=== PATIENT | male | born 1985 | race African-American/Black ===

== ENCOUNTER 2023-03-25 14:59 | Inpatient (IN) ==
[2023-03-25] MEDS ORDERED: SODIUM CHLORIDE 0.9% 1,000 ML IV ONE (15:17)
[2023-03-25] MEDS ORDERED: FAMOTIDINE 20MG IV PUSH 20 MG/5 ML SYR IV STA (15:17)
[2023-03-25 15:38] LABS: Mean Corpuscular Hemoglobin 25.8 pg (25.0-34.0); Mean Corpuscular Hgb Conc 32.5 g/dL (32.0-36.0); Mean Corpuscular Volume 79.4 fL (80.0-100.0); Platelet Count 116 K/uL (130-400); RDW Coefficient of Variation 14.5 % (11.5-14.5); RDW Standard Deviation 41.5 fL (36.4-46.3); Red Blood Count 5.62 M/uL (4.70-6.10)
[2023-03-25 15:39] LABS: Hematocrit (blood only) 44.6 % (42.0-52.0); Hemoglobin 14.5 g/dl (14.0-18.0)
[2023-03-25 15:47] LABS: Albumin Level 4.6 gm/dl (3.4-5.0); BUN Creatinine Ratio 9.5 (10-20); Bilirubin,Total 0.5 mg/dl (0.2-1.0); Calcium 9.3 mg/dl (8.6-10.3); Creatinine Clr Calc Pharmacy 66.8 ml/min; Est GFR (Non-African American) 41.4 ml/min; Globulin 4.6 gm/dl (2.5-4.0); Potassium 3.4 mmol/L (3.5-5.1); Total Protein 9.2 gm/dl (6.0-8.3)
[2023-03-25 15:53] LABS: Troponin I High Sensitivity 40.6 pg/ml (0-20)
[2023-03-25 15:55] LABS: White Blood Count 6.18 K/ul (4.8-10.8)
[2023-03-25 15:56] LABS: Basophils # (auto) 0.02 K/uL (0.00-0.20); Basophils % (auto) 0.3 %; Eosinophils # (auto) 0.18 K/uL (0.00-0.50); Eosinophils % (auto) 2.9 %; Immature Granulocytes # (auto) 0.01 K/uL (0.01-0.20); Immature Granulocytes % (auto) 0.2 %; Lymphocytes # (auto) 1.44 K/uL (1.20-3.40); Lymphocytes % (auto) 23.3 %; Monocytes # (auto) 0.39 K/uL (0.11-0.59); Monocytes % (auto) 6.3 %; Neutrophils # (auto) 4.14 K/uL (1.40-6.50); RBC Morphology Unremarkable
--- NOTE | 2023-03-25 16:46 | XRay Report ---
XR chest 1V portable HISTORY: 37 years-old Male n/v acute chest pain with nausea and vomiting COMPARISON: None TECHNIQUE: AP view of the chest FINDINGS: Cardiac silhouette is upper limits of normal in size. Subsegmental bibasilar densities. No pneumothor ax, pleural effusion or overt pulmonary edema. Bones appear grossly intact. IMPRESSION: Subsegmental bibasilar opacities likely represent atelectasis. ACT 112: Negative or not required by law. The above report was generated using voice recognition software. It may contain grammatical, syntax o r spelling errors. Electronically signed by: Adam Washington M.D. 03/25/2023 4:45 PM
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
[2023-03-25] MEDS ORDERED: LABETALOL HCL IV 5 MG/ML 20ML IV STA ×2 (17:03→19:01)
[2023-03-25] MEDS: POTASSIUM CHLORIDE / WTR 10 MEQ/100 ML PLCT IV SCH ×2 (17:26→18:59)
[2023-03-25 17:30] LABS: Appearance Urine Clear (Clear); Bacteria Urine Automated Negative (Negative); Bilirubin Urine Negative (Negative); Blood Urine Trace (Negative); Color Urine Yellow; Epithelial Cell Urine Auto 0-5 /lpf (0-5); Glucose Urine UA Negative (Negative); Ketones Urine Negative (Negative); Leukocyte Esterase Urine Negative (Negative); Nitrite Urine Negative (Negative); RBC Urine Automated 0-4 /hpf (0-4); Specific Gravity Urine 1.009 (1.000-1.030); Urobilinogen Urine Negative (Negative); WBC Urine Automated 0 /hpf (0-5)
[2023-03-25 17:38] LABS: Magnesium 1.8 mg/dl (1.7-2.4); Phosphorus 1.4 mg/dl (2.5-4.9)
[2023-03-25 17:43] LABS: Protein Urine 2+ (Negative)
[2023-03-25] MEDS ORDERED: POTASSIUM PHOS 3 MMOL/1 ML INFUSION IV STA (17:56)
--- NOTE | 2023-03-25 18:09 | History & Physical Report ---
Date of Service March 25, 2023 Assessment & Plan (1) COVID: Plan: No hypoxia, steroids and remdesivir not indicated Suspect nausea/poor intake due to this. Electrolytes repleted. Fluids given Patient received 1 L of rehydration while in the ER in addition to phosphate repletion Heparin w/ LANCE. If normalizes --> lovenox Titrate oxygen to 90%, greater than 94% on room air at time of admit (2) Hypertension: Plan: CTA of the chest with no acute findings, no dissection No neurologic symptoms, headache, or confusion; asymptomatic at time of admit assessment Labetalol 10, and additional labetalol 5 given with improvement but not normalization. Amlodipine given, + addition to 2.5 of hydralazine - labetelol revenue cycle consultant, hydralazine second line revenue cycle consultant. Would treat as inpatient due to concurrent LANCE with proteinuria, patient does have COVID with poor p.o. intake; also may have hypertensive nephropathy. Signed out to overnight provider, if no improvement with labetelol + hydralazine will give addition PRN vs --> nicardipine gtt if severe/sx and obtain renal doppler/US Continue amlodipine daily, HCTZ/GUEVARA/ARB deferred for control due to LANCE (3) LANCE (acute kidney injury): Plan: Creatinine 2.0. Unknown baseline. Patient denies hx of HTN, no diabetes history, is hypertensive on admission with a BSG of 120. A1c pending. 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 He denies chest pain, chest pressure, pain between the shoulder blades, headache, vision change, and abdominal pain. Some loose bowel movements for the last 2 days. Denies cough, fever, and chills. He does not have inspiratory pain or pleuritic pain. He denies history of renal disease, heart disease, lung disease, liver disease, and diabetes. He reports he has been eating on the road, I would like to return to driving as soon as able. He has never had an LANCE or CKD before. Endorse feeling fatigued initially, feels somewhat improved after napping in the ER. Denies tobacco, alcohol, and recreational drug use. He is subsequently found to be COVID-positive he reports he did have COVID in the past but this was around 2 to 3 years ago Medical History: Reviewed, denies any medical history Medications: Reviewed, reports he takes no chronic medications. Denies stimulant use Surgical History: Reviewed, denies Family history: Reviewed, denies family history of blood clots, heart attack, thyroid disease, strokes, aneurysm, Allergies: Reviewed, denies drug allergy Social History: Denies tobacco/alcohol/recreational drug Code Status: Full code Allergies Allergy/AdvReac Type Severity Reaction Status Date / Time No Known Allergies Allergy Unverified 03/25/23 16:02 Home Medications Medication Instructions Recorded Confirmed Type No Known Home Medications 03/25/23 03/25/23 History Past Med/Surg History Medical History Patient denies medical problems Family History Denies family history of Deep vein thrombosis Heart disease Pulmonary embolism Social History Smoking Status: Never smoker Second Hand Exposure: No; Do You Dip or Chew Tobacco: No; Tobacco Cessation Education Requested by Patient: No Hx Alcohol Use: No Hx Substance Use: No Preferred Language: Faroese Communication Ability: Unable Senior Network Administrator Required: No Beliefs That Will Affect Care: None Current Living Situation: Family Current Living Situation Comment: patient has a sister but 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 NAD. Cooperative. HEENT: Atraumatic, normocephalic. Vision/hearing intact. No field cuts. Pupils equal and reactive to light and accommodation. Approximately 3 to 4 mm pupil diam Pulm: CTAB A&P. -wheezes, -rales, -rhonchi. Symmetrical chest rise. No increased work of breathing. No respiratory distress. Cardiac: RRR, -mrg. Radial pulses intact and symmetrical. Abdominal: Nontender, nondistended, soft. BS present. Extremities: Warm, dry. Moves all extremities equally. Dry Sand Molder strength and ankle dorsiflexion/plantarflexion grossly Results & Data Results & Data Vital Signs (Past 12 Hours) Vital Signs Temp Pulse Resp BP Pulse Ox O2 Del Method 03/25/23 17:26 82 203/140 H 03/25/23 17:11 15 203/140 H 03/25/23 17:11 82 03/25/23 16:14 80 03/25/23 16:00 214/139 H 03/25/23 16:00 77 21 03/25/23 15:59 210/151 H 03/25/23 15:59 81 15 03/25/23 15:32 226/150 H 03/25/23 15:32 77 11 L 03/25/23 15:17 94 Room Air 03/25/23 15:09 81 20 94 03/25/23 14:58 21 03/25/23 14:58 36.7 C 81 20 224/140 H 94 Room Air PG Care Time/CCT Total # of Minutes Spent Total Time Spent with Patient: Total time spent is greater than 50% in coordination of care (as documented) at patient's floor/unit and/or counseling patient: Coding Level of Care Code 96208 INT INP/OBS CARE 3/75MIN Diagnoses COVID U07.1 Hypertension I10 LANCE (acute kidney injury) N17.9
[2023-03-25] MEDS ORDERED: OPTIRAY 320 125ml IV ONE (18:13)
[2023-03-25] MEDS ORDERED: POTASSIUM PHOSPHATE 9 MMOL in SODIUM CHLORIDE 0.9% 250 ML IV ONE (18:30)
--- NOTE | 2023-03-25 19:32 | CT Scan Report ---
CT angio chest dissec wo/w con, CT angio abdomen pelvis w con HISTORY: 37 years-old Male Acute n/v, ARF, HTN 220s/140s acute hypertension with dizziness, chest an d abdominal pain COMPARISON: None TECHNIQUE: CTA chest, abdomen and pelvis was obtained 119 mL Optiray 320. Noncontrast chest CT also o btained. 3-D coronal and sagittal MIPS were obtained and submitted for review. All measurements were obtained according to NASCET criteria. A dose lowering technique was used consistent with the princip als of LISBETH. FINDINGS: CTA CHEST: No intramural or mediastinal hematoma. Heart is mildly enlarged without pericardial effusion. No thor acic aortic aneurysm or dissection. There is patency of the image great vessels. No pulmonary emboli identified. CT CHEST: Unremarkable thyroid. No lymphadenopathy. No pneumothorax, pleural effusion, airspace consolidation, pulmonary edema or suspicious pulmonary nodule. Unremarkable soft tissues. Mild gynecomastia. No acut e fracture. CTA ABDOMEN AND PELVIS: No abdominal aortic aneurysm or dissection. Mild atherosclerosis, notably in the infrarenal abdominal aorta and iliac bifurcation. There is no high-grade stenosis. The celiac trunk, superior and inferio r mesenteric and renal arteries are patent. No retroperitoneal hemorrhage. CT ABDOMEN AND PELVIS: There is no free air. Unremarkable spleen, pancreas and adrenal glands. The gallbladder and liver are within normal limits. Unremarkable kidneys. No hydronephrosis. Decompressed urinary bladder with wal l thickening. Prostate is upper limits of normal in size. No lymphadenopathy. No bowel obstruction or bowel wall thickening. Mild to moderate colonic fecal retention. Normal appendix. Tiny fat filled um bilical hernia. IMPRESSION: Unremarkable CTA of the chest, abdomen and pelvis. ACT 112: Negative or not required by law. The above report was generated using voice recognition software. It may contain grammatical, syntax o r spelling errors. Electronically signed by: Adam Washington M.D. 03/25/2023 7:30 PM
[2023-03-25] MEDS ORDERED: hydrALAZINE HCL 20 MG/ML VIAL IV STA (19:37)
[2023-03-25] MEDS ORDERED: amLODIPine BESYLATE 5 MG TAB PO ONE (19:37)
[2023-03-25] MEDS: MAGNESIUM SULFATE / D5W 1 GM/100 ML BAG IV SCH ×2 (21:07→23:40)
[2023-03-25] MEDS: hydrALAZINE 10 MG TAB PO SCH (21:59)
[2023-03-25 22:21] LABS: Protein Creatinine Ratio Urine 1.4 (0-0.2); Total Protein Urine Random 75.9 mg/dl (0-11.9)
[2023-03-25] MEDS ORDERED: hydrALAZINE HCL 20 MG/ML VIAL IV PRN (23:00)
[2023-03-25] MEDS ORDERED: ACETAMINOPHEN 325 MG TAB PO PRN (23:47)
[2023-03-26] MEDS: HEPARIN SOD 5,000 UNIT/0.5 ML VIAL SQ SCH ×3 (00:33→21:31)
[2023-03-26 06:37] LABS: BUN Creatinine Ratio 7.8 (10-20); Calcium 8.6 mg/dl (8.6-10.3); Creatinine Clr Calc Pharmacy 66.4 ml/min; Est GFR (African American) 50.1 ml/min; Est GFR (Non-African American) 43.2 ml/min; Potassium 3.3 mmol/L (3.5-5.1)
[2023-03-26 07:25] LABS: Estimated Average Glucose 137 mg/dl; Hemoglobin A1C 6.4 % (4.5-5.6)
[2023-03-26 07:32] LABS: Hematocrit (blood only) 39.4 % (42.0-52.0); Hemoglobin 13.2 g/dl (14.0-18.0); Mean Corpuscular Hemoglobin 25.9 pg (25.0-34.0); Mean Corpuscular Hgb Conc 33.5 g/dL (32.0-36.0); Mean Corpuscular Volume 77.4 fL (80.0-100.0); Platelet Count 118 K/uL (130-400); RDW Coefficient of Variation 14.6 % (11.5-14.5); RDW Standard Deviation 41.2 fL (36.4-46.3); Red Blood Count 5.09 M/uL (4.70-6.10); White Blood Count 5.39 K/ul (4.8-10.8)
[2023-03-26] MEDS: hydrALAZINE 10 MG TAB PO SCH (07:47)
[2023-03-26] MEDS ORDERED: SODIUM CHLORIDE 0.9% 1,000 ML IV SCH (09:00)
[2023-03-26 09:29] LABS: Basophils # (auto) 0.01 K/uL (0.00-0.20); Basophils % (auto) 0.2 %; Eosinophils # (auto) 0.08 K/uL (0.00-0.50); Eosinophils % (auto) 1.4 %; Immature Granulocytes # (auto) 0.01 K/uL (0.01-0.20); Immature Granulocytes % (auto) 0.2 %; Lymphocytes # (auto) 1.81 K/uL (1.20-3.40); Lymphocytes % (auto) 32.7 %; Monocytes # (auto) 0.52 K/uL (0.11-0.59); Monocytes % (auto) 9.4 %; Neutrophils # (auto) 3.11 K/uL (1.40-6.50); Neutrophils % (auto) 56.1 %
[2023-03-26] MEDS: amLODIPine BESYLATE 5 MG TAB PO SCH (12:31)
[2023-03-26] MEDS ORDERED: hydrALAZINE TAB 50 MG TAB PO SCH (14:00)
--- NOTE | 2023-03-26 15:12 | Electrocardiogram Report ---
Test Reason : Blood Pressure : / mmHG Vent. Rate : 077 BPM Atrial Rate : 077 BPM P-R Int : 178 ms QRS Dur : 088 ms QT Int : 428 ms P-R-T Axes : 066 021 -88 degrees QTc Int : 484 ms Normal sinus rhythm Moderate voltage criteria for LVH, may be normal variant ( Sokolow-Silva , [place] product ) Prolonged QT Abnormal ECG No previous ECGs available Confirmed by Geremias Manriquez ([id number]) on 03/26/2023 3:12:15 PM Referred By: Confirmed By:Geremias Manriquez
[2023-03-26] MEDS: hydrALAZINE TAB 50 MG TAB PO SCH ×2 (16:06→21:31)
--- NOTE | 2023-03-26 17:09 | Nephrology Consultation ---
Date of Consultation March 26, 2023 Assessment & Plan (1) Hypertensive urgency: SBP markedly improved following 0.2 mg PO clonidine. Amlodipine 10 mg provided this AM. hydralazine 100 mg TID also ordered. BP is currently acceptable. I would avoid additional aggressive treatment at this time. PRN hydralazine was discontinued. Continue PRN PO clonidine 0.1 mg Q 6 hours for SBP >160 mmHg. Volume status is acceptable. Low sodium diet. Ultimately, if kidney function is stable tomorrow, I would consider addition of an GUEAVRA or ARB. Laboratory studies suggestive of possible mineralocorticoid excess with mild hypokalemia. Renal duplex requested to exclude MARIA VICTORIA. serum renin and to will be assessed with AM labs. I have also ordered plasma free metanephrines. 24 hour urine for catecholamines deferred for now but if patient is anticipated to be in the hospital for additional 24 hours I would request. (2) Elevated serum creatinine: Chronicity unclear. Kidneys are normal on CT. Urine is acellular. Volume status acceptable. (3) Proteinuria: Urine microscopy acellular. Non-nephrotic. Defer GUEVARA/ARB for now. Close outpatient follow up will be required. (4) COVID: Minimally symptomatic. I certainly cannot exclude COVID nephropathy (COVAN). No additional therapy at this time. Repeat metabolic profile tomorrow AM. History of Present Illness Reason for Consultation: proteinuria, poorly controlled HTN, CKD/LANCE Requesting Physician: Chan Arnold MD Attending Physician: Chan Arnold MD History of Present Illness Mr. Francisco is a 37 year-old male who presented to the ER at [facility] yesterday for evaluation of sudden onset nausea, vomiting, and feeling unwell. He had otherwise been feeling well and denies any similar symptoms recently. He does not have a known history of kidney disease or hypertension. No prior kidney function testing is available. Nolan was admitted with accelerated hypertension. IV labetalol was provided in the ER and he was started on treatment with amlodipine and hydralazine. Nolan also tested positive for COVID on admission. Laboratory studies were notable for a serum creatinine of 2.0 to 1.93 mg/dL. Electrolytes normal with mild hypokalemia at 3.3 mmol/L. Urine microscopy acellular with a random PCR of 1.4. Nolan denies headaches or visual changes. He has not experienced shortness of breath. He has no chest pains or palpitations. He does not have fluid retention or edema. He was deeply asleep when I entered his hospital room. He denies pain but admits to stress. He feels the need to return to work. 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 His laboratory assessment was also notable for a hemoglobin A1c of 6.4%. BP has been persistently accelerated throughout the day. Clonidine was pr ovided <1 hr prior to when I saw the patient and BP had markedly improved to 132 mmHg systolic. Nolan remains on tele monitor. EKG was reviewed demonstrating normal sinus rhythm without acute changes. QTc prolonged with voltage criteria for LVH. CT of the abdomen was reviewed demonstrating normal appearing kidneys. Allergies Allergy/AdvReac Type Severity Reaction Status Date / Time No Known Allergies Allergy Unverified 03/25/23 16:02 Home Medications Medication Instructions Recorded Confirmed Type No Known Home Medications 03/25/23 03/25/23 History Patient History Medical History Patient denies medical problems Family History Denies family history of Deep vein thrombosis Heart disease Pulmonary embolism Social History Smoking Status: Never smoker Second Hand Exposure: No; Do You Dip or Chew Tobacco: No; Tobacco Cessation Education Requested by Patient: No Hx Alcohol Use: No Hx Substance Use: No Preferred Language: Urdu Communication Ability: Unable Special Agent Required: No Beliefs That Will Affect Care: None Current Living Situation: Family Current Living Situation Comment: patient has a sister but 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 Other Information That Helps Us Care for You: No Feels Safe at Home: Yes Safety Concerns: Feels Safe At This Time Assistive Devices: None Review of Systems Review of Systems: All systems reviewed & are unremarkable except as noted in HPI & below Physical Exam Constitutional: well developed; no acute distress and not ill appearing Eyes: no scleral abnormality and no corneal abnormality ENMT: Mouth: no oral mucosal abnormality and oral mucous membranes not dry Neck: normal visual inspection and trachea midline Respiratory: normal respiratory effort Auscultation: lungs clear to auscultation bilaterally Cardiovascular: Rate/Rhythm: regular rate Heart Sounds: normal S1 and normal S2 Extremities: no edema Musculoskeletal: Extremities: no cyanosis and no clubbing Skin: normal turgor; no lesions Neurologic: Motor/Sensory: no tremor and no asterixis Psychiatric: Orientation: alert and oriented x 3 Results & Data Vital Signs (Past 12 Hours) Vital Signs Temp Pulse Pulse Resp BP BP Pulse Ox 03/26/23 16:51 85 171/117 H 95 03/26/23 16:04 37.0 C 80 18 184/110 H 97 03/26/23 15:39 86 03/26/23 13:23 98 H 176/120 H 171/116 H 03/26/23 13:21 84 18 180/120 H 183/119 H 97 03/26/23 12:31 85 19 191/127 H 98 03/26/23 11:18 36.9 C 77 18 165/119 H 97 03/26/23 08:16 76 03/26/23 08:16 03/26/23 07:56 173/122 H 03/26/23 07:46 36.7 C 80 16 181/123 H 96 O2 Del Method 03/26/23 16:51 Room Air 03/26/23 16:04 Room Air 03/26/23 15:39 03/26/23 13:23 03/26/23 13:21 Room Air 03/26/23 12:31 Room Air 03/26/23 11:18 Room Air 03/26/23 08:16 03/26/23 08:16 Room Air 03/26/23 07:56 03/26/23 07:46 Room Air Laboratory Results Laboratory Results - last 24 hr 03/25/23 03/25/23 03/25/23 15:27 16:56 18:27 WBC RBC Hgb Hct MCV MCH MCHC RDW Std Deviation RDW Coeff of Roberto Plt Count Immature Gran % (Auto) Neut % (Auto) Lymph % (Auto) [place] % (Auto) Eos % (Auto) Baso % (Auto) Neut # (Auto) Lymph # (Auto) [place] # (Auto) Eos # (Auto) Baso # (Auto) Immature Gran # (Auto) Sodium Potassium Chloride Carbon Dioxide Anion Gap BUN Creatinine Est Cr Clr Drug Dosing Est GFR ( Amer) Est GFR (Non-Af Amer) BUN/Creatinine Ratio Glucose Estimat Average Glucose Hemoglobin A1c Calcium Phosphorus 1.4 L* Magnesium 1.8 Troponin I High Sens 42.0 H Urine Color Yellow Urine Appearance Clear Urine pH 8.0 H Ur Specific [place] 1.009 Urine Protein 2+ H Urine Glucose (UA) Negative Urine Ketones Negative Urine Blood Trace H Urine Nitrite Negative Urine Bilirubin Negative Urine Urobilinogen Negative Ur Leukocyte Esterase Negative Urine WBC (Auto) 0 Urine RBC (Auto) 0-4 U Hyaline Cast (Auto) 1-5 U Epithel Cells (Auto) 0-5 Urine Bacteria (Auto) Negative Ur Random Creatinine 54.0 U Random Total Protein 75.9 H Protein/Creatinin Ratio 1.4 H SARS-CoV-2, RNA, NAAT POSITIVE A* 03/26/23 05:52 WBC 5.39 RBC 5.09 Hgb 13.2 L Hct 39.4 L MCV 77.4 L MCH 25.9 MCHC 33.5 RDW Std Deviation 41.2 RDW Coeff of Roberto 14.6 H Plt Count 118 L Immature Gran % (Auto) 0.2 Neut % (Auto) 56.1 Lymph % (Auto) 32.7 [place] % (Auto) 9.4 Eos % (Auto) 1.4 Baso % (Auto) 0.2 Neut # (Auto) 3.11 Lymph # (Auto) 1.81 [place] # (Auto) 0.52 Eos # (Auto) 0.08 Baso # (Auto) 0.01 Immature Gran # (Auto) 0.01 Sodium 138 Potassium 3.3 L Chloride 102 Carbon Dioxide 28 Anion Gap 8 BUN 15 Creatinine 1.93 H Est Cr Clr Drug Dosing 66.4 Est GFR ( Amer) 50.1 Est GFR (Non-Af Amer) 43.2 BUN/Creatinine Ratio 7.8 L Glucose 138 H Estimat Average Glucose 137 Hemoglobin A1c 6.4 H Calcium 8.6 Phosphorus Magnesium Troponin I High Sens Urine Color Urine Appearance Urine pH Ur Specific [place] Urine Protein Urine Glucose (UA) Urine Ketones Urine Blood Urine Nitrite Urine Bilirubin Urine Urobilinogen Ur Leukocyte Esterase Urine WBC (Auto) Urine RBC (Auto) U Hyaline Cast (Auto) U Epithel Cells (Auto) Urine Bacteria (Auto) Ur Random Creatinine U Random Total Protein Protein/Creatinin Ratio SARS-CoV-2, RNA, NAAT Diagnostic Findings CT angio chest wo/w con, CT angio abdomen pelvis w con: CTA CHEST: No intramural or mediastinal hematoma. Heart is mildly enlarged without pericardial effusion. No thoracic aortic aneurysm or dissection. There is patency of the image great vessels. No pulmonary emboli identified. CT CHEST: Unremarkable thyroid. No lymphadenopathy. No pneumothorax, pleural effusion, airspace consolidation, pulmonary edema or suspicious pulmonary nodule. Unremarkable soft tissues. Mild gynecomastia. No acute fracture. CTA ABDOMEN AND PELVIS: No abdominal aortic aneurysm or dissection. Mild atherosclerosis, notably in the infrarenal abdominal aorta and iliac bifurcation. There is no high-grade stenosis. The celiac trunk, superior and inferior mesenteric and renal arteries are patent. No retroperitoneal hemorrhage. CT ABDOMEN AND PELVIS: There is no free air. Unremarkable spleen, pancreas and adrenal glands. The gallbladder and liver are within normal limits. Unremarkable kidneys. No hydronephrosis. Decompressed urinary bladder with wall thickening. Prostate is upper limits of normal in size. No lymphadenopathy. No bowel obstruction or bowel wall thickening. Mild to moderate colonic fecal retention. Normal appendix. Tiny fat filled umbilical hernia. IMPRESSION: Unremarkable CTA of the chest, abdomen and pelvis. ECG Rate (beats per minute): 77 Rhythm: normal sinus Findings: + prolonged QT Additional Comments: voltage criteria for LVH PG Care Time/CCT Total # of Minutes Spent Total Time Spent with Patient: Total time spent is greater than 50% in coordination of care (as documented) at patient's floor/unit and/or counseling patient: Coding Level of Care Code 05829 IN/OBS CONSULT LVL 4,60M Diagnoses Hypertensive urgency I16.0 Elevated serum creatinine R79.89 Proteinuria R80.9 COVID U07.1
--- NOTE | 2023-03-26 17:22 | Hospitalist Progress Note ---
Date of Service March 26, 2023 Assessment & Plan (1) COVID: Plan: No hypoxia, steroids and remdesivir not indicated Suspect nausea/poor intake due to this. Electrolytes repleted. Fluids given Patient received 1 L of rehydration while in the ER in addition to phosphate repletion Heparin w/ LANCE. If normalizes --> lovenox Titrate oxygen to 90%, greater than 94% on room air at time of admit (2) Hypertension: Plan: complicated with hypertensive nephropathy and proteinuria, patient's blood pressure extremely high, at hydralazine 100 mg 3 times daily, add clonidine 0.2 mg twice daily continue hydralazine as needed, add amlodipine 10 mg daily, for now will avoid GUEVARA and ARB for possible acute kidney injury proceed with echocardiogram (3) LANCE (acute kidney injury): Plan: Creatinine 2.0. Unknown baseline. Patient denies hx of HTN, no diabetes history, is hypertensive on admission with a BSG of 120. A1c pending. 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 NAD. Cooperative. HEENT: Atraumatic, normocephalic. Vision/hearing intact. No field cuts. Pupils equal and reactive to light and accommodation. Approximately 3 to 4 mm pupil diam Pulm: CTAB A&P. -wheezes, -rales, -rhonchi. Symmetrical chest rise. No increased work of breathing. No respiratory distress. Cardiac: RRR, -mrg. Radial pulses intact and symmetrical. Abdominal: Nontender, nondistended, soft. BS present. Extremities: Warm, dry. Moves all extremities equally. Lifter strength and ankle dorsiflexion/plantarflexion grossly Results & Data Results & Data Vital Signs (Past 12 Hours) Vital Signs Temp Pulse Pulse Resp BP BP Pulse Ox 03/26/23 16:51 85 171/117 H 95 03/26/23 16:04 37.0 C 80 18 184/110 H 97 03/26/23 15:39 86 03/26/23 13:23 98 H 176/120 H 171/116 H 03/26/23 13:21 84 18 180/120 H 183/119 H 97 03/26/23 12:31 85 19 191/127 H 98 03/26/23 11:18 36.9 C 77 18 165/119 H 97 03/26/23 08:16 76 03/26/23 08:16 03/26/23 07:56 173/122 H 03/26/23 07:46 36.7 C 80 16 181/123 H 96 O2 Del Method 03/26/23 16:51 Room Air 03/26/23 16:04 Room Air 03/26/23 15:39 03/26/23 13:23 03/26/23 13:21 Room Air 03/26/23 12:31 Room Air 03/26/23 11:18 Room Air 03/26/23 08:16 03/26/23 08:16 Room Air 03/26/23 07:56 03/26/23 07:46 Room Air PG Care Time/CCT Total # of Minutes Spent Total Time Spent with Patient: Total time spent is greater than 50% in coordination of care (as documented) at patient's floor/unit and/or counseling patient: Coding Level of Care Code 81851 SUB INP/OBS CARE 3/50MIN Diagnoses COVID U07.1 Hypertension I10 LANCE (acute kidney injury) N17.9
[2023-03-26] MEDS ORDERED: hydrALAZINE HCL 20 MG/ML VIAL IV PRN (18:18)
[2023-03-26] MEDS ORDERED: cloNIDine HCL 0.1 MG TAB PO PRN (19:09)
[2023-03-26] MEDS ORDERED: cloNIDine HCL 0.3 MG TAB PO SCH (21:00)
[2023-03-26] MEDS ORDERED: cloNIDine HCL 0.1 MG TAB PO SCH (21:00)
[2023-03-26 22:12] LABS: Total Protein Urine Random 67.8 mg/dl (0-11.9)
[2023-03-26 22:18] LABS: Creatinine Urine Random 249.5 mg/dl
[2023-03-27 06:26] LABS: Albumin Level 3.7 gm/dl (3.4-5.0); BUN Creatinine Ratio 9.4 (10-20); Calcium 8.8 mg/dl (8.6-10.3); Creatinine Clr Calc Pharmacy 59.9 ml/min; Est GFR (African American) 44.5 ml/min; Est GFR (Non-African American) 38.4 ml/min; Phosphorus 2.9 mg/dl (2.5-4.9); Potassium 3.1 mmol/L (3.5-5.1)
[2023-03-27 07:25] LABS: Hematocrit (blood only) 38.4 % (42.0-52.0); Hemoglobin 12.6 g/dl (14.0-18.0); Mean Corpuscular Hemoglobin 25.8 pg (25.0-34.0); Mean Corpuscular Hgb Conc 32.8 g/dL (32.0-36.0); Mean Corpuscular Volume 78.7 fL (80.0-100.0); Mean Platelet Volume 11.6 fL (9.4-12.4); Platelet Count 124 K/uL (130-400); RDW Coefficient of Variation 14.6 % (11.5-14.5); RDW Standard Deviation 41.7 fL (36.4-46.3); Red Blood Count 4.88 M/uL (4.70-6.10); White Blood Count 4.49 K/ul (4.8-10.8)
[2023-03-27 07:27] LABS: Basophils # (auto) 0.01 K/uL (0.00-0.20); Basophils % (auto) 0.2 %; Eosinophils # (auto) 0.12 K/uL (0.00-0.50); Eosinophils % (auto) 2.7 %; Immature Granulocytes # (auto) 0.02 K/uL (0.01-0.20); Immature Granulocytes % (auto) 0.4 %; Lymphocytes # (auto) 1.78 K/uL (1.20-3.40); Lymphocytes % (auto) 39.6 %; Monocytes # (auto) 0.45 K/uL (0.11-0.59); Neutrophils # (auto) 2.11 K/uL (1.40-6.50); Neutrophils % (auto) 47.1 %
--- NOTE | 2023-03-27 08:53 | Ultrasound Report ---
US duplex renal artery HISTORY: 37 years-old Male ed, accelerated hypertension acute kidney injury with hypertension COMPARISON: CTA 03/25/2023 TECHNIQUE: Multiple real-time sonographic images of the renal vascular structures were obtained asses sing grayscale appearance, color and spectral flow FINDINGS: The right kidney measures 10.3 cm in length. Peak systolic velocities within the right kidney measure up to 86.4 cm/s with resistive indices of 0.69. Patent left renal vein. No elevated peak systolic ve locities. The left kidney measures 10.8 cm in length and is partially obscured by bowel gas. Peak systolic velo cities measure up to 85 cm/s with resistive indices of 0.62. Patent left renal vein. No elevated peak systolic velocities. Normal waveforms in the abdominal aorta with peak systolic velocities measuring up to 79 cm/s. IMPRESSION: No evidence of renal arterial stenosis. ACT 112: Negative or not required by law. The above report was generated using voice recognition software. It may contain grammatical, syntax o r spelling errors. Electronically signed by: Adam Washington M.D. 03/27/2023 8:51 AM
--- NOTE | 2023-03-27 08:54 | XCELERA ---
[id number]
[2023-03-27] MEDS: amLODIPine BESYLATE 5 MG TAB PO SCH (09:10)
[2023-03-27] MEDS: hydrALAZINE TAB 50 MG TAB PO SCH ×3 (09:10→21:14)
[2023-03-27] MEDS: HEPARIN SOD 5,000 UNIT/0.5 ML VIAL SQ SCH ×2 (09:11→21:15)
[2023-03-27] MEDS ORDERED: cloNIDine HCL 0.1 MG TAB PO ONE (09:53)
[2023-03-27] MEDS ORDERED: POTASSIUM CHLORIDE CRTAB 20 MEQ TABCR PO STA (09:53)
--- NOTE | 2023-03-27 10:00 | Nephrology Progress Note ---
Date of Service March 27, 2023 Assessment & Plan (1) Hypertensive urgency: Plan: SBP markedly improved following 0.2 mg PO clonidine last evening Amlodipine 10 mg provided this AM. Remains on hydralazine 100 mg TID as well. Additional dose of 0.2 mg clonidine provided this AM for elevated BP. Nolan would really like to be discharged home. He relates that he can arrange close follow up with a physician in [place]. He was advised that discharge would be safest once we can document appropriate BP control on a regimen that he is tolerating well. Given his kidney dysfunction and not knowing when he will have follow up labs, I have opted not to use RASi for now. Given hypokalemia, thiazide diuretics avoided. KCl 40 mEq provided this AM. Volume status is acceptable. Low sodium diet. Laboratory studies suggestive of possible mineralocorticoid excess with mild hypokalemia. Serum renin, to, and serum free metanephrines pending. Renal duplex was negative for MARIA VICTORIA. (2) Elevated serum creatinine: Plan: Non-oliguric. Chronicity unclear; no prior labs available. Kidneys are normal on CT. Urine is acellular. Volume status acceptable. Creatinine relatively stable at 2.13 mg/dL. (3) Proteinuria: Plan: Urine microscopy acellular. Non-nephrotic. Defer GUEVARA/ARB for now. Importance of close outpatient follow up was stressed. (4) COVID: Plan: Minimally symptomatic. 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 Kidney function appears relatively stable. Admission and Anticipated Discharge Date Admission Date: March 25, 2023 Subjective No acute events overnight. Nolan feels well this morning. He denies any nausea. Appetite is good. No headaches. No fluid retention. Slept well. No orthostatic changes in BP appreciated. BP equal in both arms. Review of Systems Review of Systems: All systems reviewed & are unremarkable except as noted in HPI & below Physical Exam Constitutional: well developed; no acute distress and not ill appearing Eyes: no scleral abnormality and no corneal abnormality ENMT: Mouth: no oral mucosal abnormality and oral mucous membranes not dry Neck: normal visual inspection and trachea midline Respiratory: normal respiratory effort Auscultation: lungs clear to auscultation bilaterally Cardiovascular: Rate/Rhythm: regular rate Heart Sounds: normal S1 and normal S2 Extremities: no edema Musculoskeletal: Extremities: no cyanosis and no clubbing Skin: normal turgor; no lesions Neurologic: Motor/Sensory: no tremor and no asterixis Psychiatric: Orientation: alert and oriented x 3 Results & Data Vital Signs (Past 12 Hours) Vital Signs Temp Pulse Pulse Resp BP BP Pulse Ox 03/27/23 09:52 68 03/27/23 09:09 36.5 C 78 17 172/116 H 96 03/27/23 03:29 36.6 C 64 20 141/88 H 96 03/26/23 23:42 89 16 146/92 H 94 03/26/23 22:00 76 O2 Del Method 03/27/23 09:52 03/27/23 09:09 Room Air 03/27/23 03:29 Room Air 03/26/23 23:42 Room Air 03/26/23 22:00 Laboratory Results Laboratory Results - last 24 hr 03/26/23 03/27/23 03/27/23 21:35 05:27 05:41 WBC 4.49 L RBC 4.88 Hgb 12.6 L Hct 38.4 L MCV 78.7 L MCH 25.8 MCHC 32.8 RDW Std Deviation 41.7 RDW Coeff of Roberto 14.6 H Plt Count 124 L MPV 11.6 Immature Gran % (Auto) 0.4 Neut % (Auto) 47.1 Lymph % (Auto) 39.6 [place] % (Auto) 10.0 Eos % (Auto) 2.7 Baso % (Auto) 0.2 Neut # (Auto) 2.11 Lymph # (Auto) 1.78 [place] # (Auto) 0.45 Eos # (Auto) 0.12 Baso # (Auto) 0.01 Immature Gran # (Auto) 0.02 Sodium 136 Potassium 3.1 L Chloride 101 Carbon Dioxide 29 Anion Gap 6 BUN 20 Creatinine 2.13 H Est Cr Clr Drug Dosing 59.9 Est GFR ( Amer) 44.5 Est GFR (Non-Af Amer) 38.4 BUN/Creatinine Ratio 9.4 L Glucose 133 H Calcium 8.8 Phosphorus 2.9 D Magnesium 2.0 Albumin 3.7 Renin Activity Pending Aldosterone Pending Dopamine Pending Epinephrine Pending Norepinephrine Pending Total Catecholamines Pending Ur Random Creatinine 249.5 U Random Total Protein 67.8 H PG Care Time/CCT Total # of Minutes Spent Total Time Spent with Patient: Total time spent is greater than 50% in coordination of care (as documented) at patient's floor/unit and/or counseling patient: Coding Level of Care Code 94158 SUB INP/OBS CARE 50MIN Diagnoses Hypertensive urgency I16.0 Elevated serum creatinine R79.89 Proteinuria R80.9 COVID U07.1
--- NOTE | 2023-03-27 16:40 | Hospitalist Progress Note ---
Date of Service March 27, 2023 Assessment & Plan (1) Hypertension: Plan: complicated with hypertensive nephropathy and proteinuria complicated with hypertensive heart disease. Echocardiogram shows severe left ventricular hypertrophy Patient has not seen a doctor in a long time. Not on any medications Currently patient is on hydralazine 100 mg p.o. 3 times daily, amlodipine 10 mg p.o. daily. Clonidine is being used on an as-needed basis. Patient responded well with clonidine yesterday and thus he was given a dose of clonidine today. His blood pressure has been fluctuating. Will observe him overnight. If blood pressure stays stable, will discharge him tomorrow. He has hypokalemia suggesting hyperaldosteronism. Serum renin, Constantin and serum free metanephrines pending. Renal duplex was negative for renal artery stenosis. Potassium repleted today. Patient states that he can arrange close follow-up with a physician at [place]. Once blood pressure controlled And stable, will plan to discharge. (2) LANCE (acute kidney injury): Plan: Creatinine 2.0. Unknown baseline. Patient denies hx of HTN, no diabetes history, is hypertensive on admission with a BSG of 120. A1c pending. -CTA/P: No acute findings BMP trended nephrology on board. Creatinine has been Relatively stable at around 2. he will need an outpatient doctor established at [place]. (3) COVID: Plan: No hypoxia, steroids and remdesivir not indicated Suspect nausea/poor intake due to this. Electrolytes repleted. Fluids given Plan DVT prophylaxis: Heparin SQ Disposition: PCU for IV antihypertensive availability CODE STATUS: Full code Diet: Regular Admission and Anticipated Discharge Date Admission Date: March 25, 2023 Subjective Patient denies any chest pain, shortness of breath. Review of Systems Review of Systems: All systems reviewed & are unremarkable except as noted in Subjective Physical Exam Physical Exam: General: Awake, conversant Heart: S1, S2/regular rate and rhythm, no murmur rubs or gallops Lungs: Clear to auscultation bilaterally. Normal effort Abdomen: Soft/nontender/nondistended. No hepatosplenomegaly Extremities: No clubbing/cyanosis. No edema Behavior: Appropriate, cooperative Results & Data Results & Data Vital Signs (Past 12 Hours) Vital Signs Temp Pulse Pulse Resp BP BP Pulse Ox 03/27/23 16:28 36.9 C 70 18 135/95 95 03/27/23 15:59 75 03/27/23 14:46 138/91 03/27/23 11:44 152/103 H 03/27/23 11:14 36.8 C 79 18 167/110 H 98 03/27/23 09:52 68 03/27/23 09:09 36.5 C 78 17 172/116 H 96 O2 Del Method 03/27/23 16:28 Room Air 03/27/23 15:59 03/27/23 14:46 03/27/23 11:44 03/27/23 11:14 Room Air 03/27/23 09:52 03/27/23 09:09 Room Air Laboratory Results Abnormal lab results 03/26/23 03/27/23 03/27/23 Range/Units 21:35 05:27 05:41 WBC 4.49 L (4.8-10.8) K/ul Hgb 12.6 L (14.0-18.0) g/dl Hct 38.4 L (42.0-52.0) % MCV 78.7 L (80.0-100.0) fL RDW Coeff of Roberto 14.6 H (11.5-14.5) % Plt Count 124 L (130-400) K/uL Potassium 3.1 L (3.5-5.1) mmol/L Creatinine 2.13 H (0.6-1.4) mg/dl BUN/Creatinine Ratio 9.4 L (10-20) Glucose 133 H (70-99(Fasting)) mg/dl U Random Total Protein 67.8 H (0-11.9) mg/dl Diagnostic Findings Renal Artery Duplex 03/27/23 00:00 US duplex renal artery HISTORY: 37 years-old Male lance, accelerated hypertension acute kidney injury with hypertension COMPARISON: CTA 03/25/2023 TECHNIQUE: Multiple real-time sonographic images of the renal vascular structures were obtained assessing grayscale appearance, color and spectral flow FINDINGS: The right kidney measures 10.3 cm in length. Peak systolic velocities within the right kidney measure up to 86.4 cm/s with resistive indices of 0.69. Patent left renal vein. No elevated peak systolic velocities. The left kidney measures 10.8 cm in length and is partially obscured by bowel gas. Peak systolic velocities measure up to 85 cm/s with resistive indices of 0.62. Patent left renal vein. No elevated peak systolic velocities. Normal waveforms in the abdominal aorta with peak systolic velocities measuring up to 79 cm/s. IMPRESSION: No evidence of renal arterial stenosis. ACT 112: Negative or not required by law. The above report was generated using voice recognition software. It may contain grammatical, syntax or spelling errors. Electronically signed by: Adam [place] M.D. 03/27/2023 8:51 AM PG Care Time/CCT Total # of Minutes Spent Total Time Spent with Patient: Total time spent is greater than 50% in coordination of care (as documented) at patient's floor/unit and/or counseling patient: Coding Level of Care Code 53317 SUB INP/OBS CARE 2/35MIN Diagnoses Hypertension I10 LANCE (acute kidney injury) N17.9 COVID U07.1
[2023-03-28] MEDS ORDERED: INFLUENZA VIRUS QUADRIVALENT VACCINE (IIV4) 0.5 ML SYR IM ONE (00:23)
[2023-03-28 07:01] LABS: Eosinophils # (auto) 0.11 K/uL (0.00-0.50); Eosinophils % (auto) 2.1 %; Hematocrit (blood only) 37.5 % (42.0-52.0); Hemoglobin 12.7 g/dl (14.0-18.0); Immature Granulocytes # (auto) 0.01 K/uL (0.01-0.20); Immature Granulocytes % (auto) 0.2 %; Lymphocytes # (auto) 1.55 K/uL (1.20-3.40); Lymphocytes % (auto) 29.4 %; Mean Corpuscular Hemoglobin 26.1 pg (25.0-34.0); Mean Corpuscular Hgb Conc 33.9 g/dL (32.0-36.0); Mean Corpuscular Volume 77.2 fL (80.0-100.0); Monocytes % (auto) 9.5 %; Neutrophils # (auto) 3.11 K/uL (1.40-6.50); Neutrophils % (auto) 58.8 %; Platelet Count 142 K/uL (130-400); RDW Coefficient of Variation 14.6 % (11.5-14.5); RDW Standard Deviation 40.5 fL (36.4-46.3); Red Blood Count 4.86 M/uL (4.70-6.10); White Blood Count 5.28 K/ul (4.8-10.8)
[2023-03-28 07:16] LABS: Calcium 8.9 mg/dl (8.6-10.3); Creatinine Clr Calc Pharmacy 63.6 ml/min; Est GFR (Non-African American) 41.4 ml/min; Magnesium 1.9 mg/dl (1.7-2.4); Potassium 3.5 mmol/L (3.5-5.1)
[2023-03-28] MEDS ORDERED: cloNIDine HCL 0.1 MG TAB PO SCH ×2 (09:00→21:00)
[2023-03-28] MEDS: amLODIPine BESYLATE 5 MG TAB PO SCH (09:30)
[2023-03-28] MEDS: HEPARIN SOD 5,000 UNIT/0.5 ML VIAL SQ SCH (09:30)
[2023-03-28] MEDS ORDERED: POTASSIUM CHLORIDE 10 MEQ TABCR PO STA (09:36)
--- NOTE | 2023-03-28 09:36 | Nephrology Progress Note ---
Date of Service March 28, 2023 Assessment & Plan (1) Hypertensive urgency: Plan: Amlodipine 10 mg and clonidine 0.2 mg to be provided this AM. I will plan to schedule clonidine 0.2 mg BID. Hydralazine held. Nolan would really like to be discharged home. He relates that he can arrange close follow up with a physician in [place]. Given his kidney dysfunction and not knowing when he will have follow up labs, I have opted not to use RASi for now. Given hypokalemia, thiazide diuretics avoided. Electrolytes normal this AM. Volume status is acceptable. Low sodium diet reviewed. Laboratory studies suggestive of possible mineralocorticoid excess with mild hypokalemia. Serum renin, to, and serum free metanephrines pending. Renal duplex was negative for MARIA VICTORIA. (2) Elevated serum creatinine: Plan: Non-oliguric. Chronicity unclear; no prior labs available. Kidneys are normal on CT. Urine is acellular. Volume status acceptable. Creatinine stable at 2.0 mg/dL. Importance of close outpatient follow up with a physician stressed. (3) Proteinuria: Plan: Urine microscopy acellular. Non-nephrotic. Defer GUEVARA/ARB for now. Admission and Anticipated Discharge Date Admission Date: March 25, 2023 Subjective No acute events overnight. No complaints this AM. Nolan expressed urgency to be discharged. Transportation options are very limited and he has a small window today to catch a ride. He is tolerating current therapy well. BP has been reasonably controlled. He denies any nausea or vomiting. No headaches. No chest pains or palpitations. No shortness of breath. BP has responded well to clonidine 0.2 mg provided yesterday. Hydralazine held by request. There was no notable response to hydralazine yesterday. We discussed an increased dose of clonidine + amlodipine today. He will be able to monitor his BP on the road. Review of Systems Review of Systems: All systems reviewed & are unremarkable except as noted in HPI & below Physical Exam Constitutional: well developed; no acute distress and not ill appearing Eyes: no scleral abnormality and no corneal abnormality ENMT: Mouth: no oral mucosal abnormality and oral mucous membranes not dry Neck: normal visual inspection and trachea midline Respiratory: normal respiratory effort Auscultation: lungs clear to auscultation bilaterally Cardiovascular: Rate/Rhythm: regular rate Heart Sounds: normal S1 and normal S2 Extremities: no edema Musculoskeletal: Extremities: no cyanosis and no clubbing Skin: normal turgor; no lesions Neurologic: Motor/Sensory: no tremor and no asterixis Psychiatric: Orientation: alert and oriented x 3 Results & Data Vital Signs (Past 12 Hours) Vital Signs Temp Pulse Pulse Resp BP Pulse Ox O2 Del Method 03/28/23 07:53 37.0 C 73 18 150/96 H 98 Room Air 03/28/23 04:13 36.7 C 70 20 170/100 H 98 Room Air 03/27/23 22:56 36.5 C 87 20 158/96 H 95 Room Air 03/27/23 22:00 75 Laboratory Results Laboratory Results - last 24 hr 03/28/23 06:08 WBC 5.28 RBC 4.86 Hgb 12.7 L Hct 37.5 L MCV 77.2 L MCH 26.1 MCHC 33.9 RDW Std Deviation 40.5 RDW Coeff of Roberto 14.6 H Plt Count 142 Immature Gran % (Auto) 0.2 Neut % (Auto) 58.8 Lymph % (Auto) 29.4 [place] % (Auto) 9.5 Eos % (Auto) 2.1 Baso % (Auto) 0.0 Neut # (Auto) 3.11 Lymph # (Auto) 1.55 [place] # (Auto) 0.50 Eos # (Auto) 0.11 Baso # (Auto) 0.00 Immature Gran # (Auto) 0.01 Sodium 137 Potassium 3.5 Chloride 103 Carbon Dioxide 29 Anion Gap 5 BUN 22 Creatinine 2.00 H Est Cr Clr Drug Dosing 63.6 Est GFR ( Amer) 48.0 Est GFR (Non-Af Amer) 41.4 BUN/Creatinine Ratio 11.0 Glucose 124 H Calcium 8.9 Magnesium 1.9 PG Care Time/CCT Total # of Minutes Spent Total Time Spent with Patient: Total time spent is greater than 50% in coordination of care (as documented) at patient's floor/unit and/or counseling patient: Coding Level of Care Code 98350 SUB INP/OBS CARE 3/50MIN Diagnoses Hypertensive urgency I16.0 Elevated serum creatinine R79.89 Proteinuria R80.9
[2023-03-28] MEDS: hydrALAZINE TAB 50 MG TAB PO SCH (09:37)
--- NOTE | 2023-03-28 10:29 | Discharge Summary ---
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 He denies chest pain, chest pressure, pain between the shoulder blades, headache, vision change, and abdominal pain. Some loose bowel movements for the last 2 days. Denies cough, fever, and chills. He does not have inspiratory pain or pleuritic pain. He denies history of renal disease, heart disease, lung disease, liver disease, and diabetes. He reports he has been eating on the road, I would like to return to driving as soon as able. He has never had an LANCE or CKD before. Endorse feeling fatigued initially, feels somewhat improved after napping in the ER. Denies tobacco, alcohol, and recreational drug use. He is subsequently found to be COVID-positive he reports he did have COVID in the past but this was around 2 to 3 years ago Medical History: Reviewed, denies any medical history Medications: Reviewed, reports he takes no chronic medications. Denies stimulant use Surgical History: Reviewed, denies Family history: Reviewed, denies family history of blood clots, heart attack, thyroid disease, strokes, aneurysm, Allergies: Reviewed, denies drug allergy Social History: Denies tobacco/alcohol/recreational drug Code Status: Full code Admission Exam Per Admitting Provider General: A&Ox3. NAD. Cooperative. HEENT: Atraumatic, normocephalic. Vision/hearing intact. No field cuts. Pupils equal and reactive to light and accommodation. Approximately 3 to 4 mm pupil diam Pulm: CTAB A&P. -wheezes, -rales, -rhonchi. Symmetrical chest rise. No increased work of breathing. No respiratory distress. Cardiac: RRR, -mrg. Radial pulses intact and symmetrical. Abdominal: Nontender, nondistended, soft. BS present. Extremities: Warm, dry. Moves all extremities equally. Assistant Golf Professional strength and ankle dorsiflexion/plantarflexion grossly Principal Diagnosis Uncontrolled hypertension, Complicated by hypertensive nephropathy and hypertensive heart disease Renal failure most likely chronic in nature due to uncontrolled hypertension Hypokalemia Discharge Exam General: Awake, conversant Heart: S1, S2/regular rate and rhythm, no murmur rubs or gallops Lungs: Clear to auscultation bilaterally. Normal effort Abdomen: Soft/nontender/nondistended. No hepatosplenomegaly Extremities: No clubbing/cyanosis. No edema Behavior: Appropriate, cooperative Discharge Data Allergies Allergy/AdvReac Type Severity Reaction Status Date / Time No Known Allergies Allergy Unverified 03/25/23 16:02 Consultations 03/25/23 17:55 ED Decision to Admit Stat 03/26/23 12:46 Consult Nephrology Routine Ordered Studies 03/25/23 17:53 CT angio abdomen pelvis w con Stat CT angio chest dissec wo/w con Stat 03/27/23 US duplex renal artery Routine Hospital Course (1) Hypertension: complicated with hypertensive nephropathy and proteinuria complicated with hypertensive heart disease. Echocardiogram shows severe left ventricular hypertrophy Patient has not seen a doctor in a long time. Not on any medications Currently patient is on hydralazine 100 mg p.o. 3 times daily, amlodipine 10 mg p.o. daily and clonidine 0.2 mg p.o. daily. He is being discharged on this regimen. He has been advised to follow-up with a PCP in 1 week. His PCP will need to work on secondary causes of hypertension. He does have hypokalemia suggesting hyperaldosteronism. Serum renin, Constantin and free metanephrines pending. Renal duplex ultrasound was negative for renal artery stenosis. His PCP can also consider stopping the hydralazine and going up on the clonidine from 0.2 mg once daily to twice daily dosing. Hydralazine seems to have very minimal effect on his blood pressure anyways. The patient prefers to be on 2 medications for blood pressure control rather than 3 medications. 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 Moreover, we can minimize side effects and help with compliance if he is on 2 medications rather than 3. This is something that can be worked on outpatient by his PCP. He has been encouraged to establish a PCP as soon as possible. (2) LANCE (acute kidney injury): Creatinine 2.0. Unknown baseline. Patient denies hx of HTN, no diabetes history, is hypertensive on admission with a BSG of 120. A1c pending. -CTA/P: No acute findings BMP trended. Creatinine seems to be stable at around 2 which makes me wonder if this is chronic kidney disease. nephrology on board. He will need follow-up with a PCP which will need to be established. The importance of having a PCP established has been emphasized. (3) COVID: No hypoxia, steroids and remdesivir not indicated Suspect nausea/poor intake due to this. Electrolytes repleted. Fluids given (4) Pre-diabetes: Encouraged dietary modification Plan CODE STATUS: Full code discharge to home today. Total Time Total Time Spent Total Time Spent (In Minutes): 35 Discharge Plan Discharge Items Patient Disposition: Home - Self-Care Reason For Visit: COVID, LANCE, SEVERE HYPERTENSION Discharge Diagnosis: Uncontrolled hypertension, Complicated by hypertensive nephropathy and hypertensive heart disease Renal failure most likely chronic in nature due to uncontrolled hypertension Hypokalemia Activity: Resume your previous activity Non-emergency contact: Primary Care Provider Call non-emergency contact if: you have any medication questions and your symptoms worsen Follow-up/Referrals: PCP,NO [Primary Care Provider] - Diet: Low Sodium (2gm) Addtl Attending Provider Instructions: Advised that you will need a PCP established at [place] You will need a workup done to determine the cause of your uncontrolled hypertension You will need a workup done for your kidney failure as well. This can all be addressed by a PCP. -- You are being discharged on 3 BP medications temporarily. The Clonidine can be increased to twice-daily dosing and the Hydralazine maybe discontinued in near future to reduce the number of medications. This can be done outpatient by your PCP. Pending Studies at Discharge: No Stand-Alone Forms: [facility] Medications and DC Order Prescriptions: New amlodipine [Norvasc] 5 mg Tablet 10 mg PO QAM Qty: 30 0RF clonidine HCl 0.1 mg Tablet 0.2 mg PO QAM Qty: 60 0RF hydralazine 50 mg Tablet 100 mg PO TID Qty: 270 0RF Discharge Orders: Discharge Order (Routine); Ordered 03/28/23 Ordered By: Shayna Cano/Other Patient Handouts: Prediabetes, 5 Steps for Eating Healthier Admission Data Admit Date/Time: 03/25/23 19:36 Attending Provider: Shayna Rogers Admit Provider: Po Bailey Primary Care Provider: PCP,NO Other Providers: Po Bailey; Octaviano Sanon; Tammy Brown; Jamal Romero; Sushila Taylor Other Interventions: Discharge Summary Assessment (RN) Last Done: 03/28/23 10:41 Coding Level of Care Code 77897 INP/OBS DISCH >30 MIN Diagnoses Hypertension I10 LANCE (acute kidney injury) N17.9 COVID U07.1 Pre-diabetes R73.03
== END 2023-03-28 11:18 | disposition home or self-care (01) | DRG 178 ==
LOC: ED 14:59 → SUATTDRO 19:36 → 2E 19:36
DX: N18.9 Chronic kidney disease, unspecified; I13.10 Hypertensive heart and chronic kidney disease without heart failure, with stage 1 through stage 4 chronic kidney disease, or unspecified chronic kidney disease; E26.9 Hyperaldosteronism, unspecified; R11.2 Nausea with vomiting, unspecified; I50.9 Heart failure, unspecified; N17.9 Acute kidney failure, unspecified; E87.6 Hypokalemia; U07.1 COVID-19; I16.0 Hypertensive urgency; R73.03 Prediabetes